=== PATIENT | male | born 1960 | race Hispanic/Latino ===

== ENCOUNTER 2016-09-29 15:40 | Emergency (ER) | payer OTHER, MEDICARE ==
[~2016-09-29] VITALS: Ht 172.7 cm; Wt 76.2 kg
[~2016-09-29 15:40] MED LIST: AMITRIPTYLINE H50 M2 PO; ASPIRIN CHILDRE81 MG PO; ASPIRIN EC325 MG PO; ASPIRIN EC81 M1 PO; COMPLERA TABLE1 EACH PO; CYCLOBENZAPRINE5 M2 PO; FAMOTIDINE40 M1 PO; FISH OIL CONC1000 MG PO; FISH OIL CONCEN1 SGL PO; FISH OIL1000 MG PO; FLEXERIL10 MG PO; FUROSEMIDE20 M1 PO; HYDROCHLOROTHIA25 M1 PO; LISINOPRIL20 MG PO; LISINOPRIL40 M1 PO; LOPRESSOR50 M1 PO; LOPRESSOR50 MG PO; LORAZEPAM2 M1 PO; LORAZEPAM2 MG PO; MASON NATURAL1200 MG PO; METOPROLOL TART50 MG PO; MOTRIN 600 MG600 MG PO; NIACIN500 M6 PO; NITRO-DUR0.4 MG/HR TOP; NITRO-DUR1 EAC1 TOP; NORVIR100 MG PO; OXYCODONE HCL5 M1 PO; PROAIR HFA0.09 MG/Ac INH; REYATAZ 300MG300 MG PO; TORADOL10 MG PO; TRUVADA 200 MG-1 TAB PO; Transderm Nitro 10MG (0.4 MG/Hr) Patch TOP; VITAMIN D250000 UNIT PO
[2016-09-29 15:55] LABS: HEMATOCRIT 49.8 % (42-52); MEAN CORPUSCULAR HGB 29.3 PG (27.0-31.0); MEAN CORPUSCULAR HGB CONC 32.6 G/DL (33.0-37.0); MEAN CORPUSCULAR VOLUME 89.9 FL (80.0-94.0); MEAN PLATELET VOLUME 8.1 FL (7.4-10.4); PLATELET COUNT 154 /CUMM (130-400); RBC DISTRIBUTION WIDTH 13.2 % (11.5-14.5); RED BLOOD CELL CT 5.54 /CUMM (4.70-6.10); WHITE BLOOD CELL COUNT 7.4 /CUMM (4.8-10.8)
--- NOTE | 2016-09-29 16:39 | ED CARDIAC/CP/PALPITATIONS ---
History of Present Illness General Chief Complaint: Cardiopulmonary Resuscitation Stated Complaint: BIBA FOR CARDIAC ARREST Source: patient Exam Limitations: no limitations Vital Signs & Intake/Output Vital Signs & Intake/Output Vital Signs Date Time Temp Pulse Resp B/P B/P Pulse O2 O2 Flow FiO2 Mean Ox Delivery Rate 09/29 1927 122 16 131/89 97 Ventilator 100% 09/29 1902 103 16 140/103 99 Ventilator 100% 09/29 1854 100 09/29 1852 140 165/120 09/29 1755 140 16 165/120 99 Ventilator 100% 09/29 1714 99 Ventilator 100% 09/29 1602 139 16 162/90 98 Ventilator 100% 09/29 1545 100 09/29 1540 150 20 70/47 98 Ventilator 100% Allergies Coded Allergies: NO KNOWN ALLERGIES (09/23/15) Reconcile Medications Amitriptyline HCl 50 MG TABLET 1 TAB PO DAILY DEPRESSION (Reported) Aspirin (Ecotrin*) 81 MG TABLET.DR 1 TAB PO DAILY HEART/BLOOD (Reported) Emtricitab/Rilpivirine/Tenofov (Complera Tablet) 1 EACH TABLET 1 TAB PO DAILY ANTIVIRAL (Reported) Famotidine 40 MG TABLET 1 TAB PO BID GI (Reported) Furosemide 20 MG TABLET 0.5 TAB PO EOD DIURETIC (Reported) Hydrochlorothiazide 25 MG TABLET 1 TAB PO DAILY BP (Reported) Lisinopril 40 MG TABLET 1 TAB PO BID BP (Reported) Lorazepam 2 MG TABLET 1 TAB PO TID ANXIETY (Reported) Metoprolol Tartrate (Lopressor) 50 MG TABLET 1.5 TAB PO BID HEART/BP ( Reported) Niacinamide (Niacin) 500 MG TABLET 1 TAB PO DAILY SUPPLEMENT (Reported) Nitroglycerin (Nitro-Dur) 1 EACH PATCH.TD24 1 PATCH TOP DAILY ANGINA ( Reported) Triage Nurses Notes Reviewed? yes HPI: Patient presents status post asystolic and subsequent PEA arrest. According to EMS the patient had been out with the family for the day and then collapsed. EMS arrived after approximately a 10 minute down time and performed CPR including intubation. After 4 rounds of epinephrine he had a return of spontaneous circulation. Patient is unable to provide history. Past History Travel History Traveled to [place] past 21 day No Medical History Any Pertinent Medical History? 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 SISTER Relation not specified for: Early CAD Hx Contributory? No Review of Systems Review of Systems Constitutional: Reports: see HPI. Comments Patient unable to provide review of systems Physical Exam Physical Exam Cardiovascular: SEE below Comments: Gen.: Well-nourished, well-developed, unresponsive, status post endotracheal intubation Head: Normocephalic, atraumatic. Eyes: Pupils fixed and dilated with clouded corneas bilaterally Ears: Normal inspection bilaterally Nose: Normal inspection Throat/mouth : Endotracheal tube in place Neck: No apparent trauma Heart: Rapid but otherwise Regular rate and rhythm, no murmurs rubs or gallops Lungs: Clear to auscultation bilaterally with normal air entry with manual ventilations Chest: No apparent trauma with good chest rise with manual ventilations Abdomen: Nondistended with no "breathsounds" over the epigastric region Extremities: Spontaneous movements, palpable radial and femoral pulses Neurologic: Able to assess Skin: warm and dry Psychiatric: unable to assess Core Measures ACS in differential dx? Yes Severe Sepsis Present: No Septic Shock Present: No Progress Differential Diagnosis: myocardial infarction, dysrhythmia, pulmonary embolism Plan of Care: Orders Procedure Date/time Status ARTERIAL BLOOD GAS (GEN) 09/29 1938 Active Admit to inpatient 09/29 1938 Active EKG 09/29 1810 Active EKG 09/29 1742 Active VENTILATOR PARAMETERS 09/29 1601 Complete Add-on Test (ER Only) 09/29 1555 Active COMPREHENSIVE METABOLIC PANEL 09/29 1548 Complete CBC WITHOUT DIFFERENTIAL 09/29 1548 Complete EKG 09/29 1544 Active TROPONIN LEVEL 09/29 1520 Complete Current Medications Sig/Aidan Start time Last Medication Dose Stop Time Status Admin Amiodarone HCl/ 360 MG Q12H 09/29 1944 UNVr Dextrose (Nexterone) N/A 1 UNIT (No Carrier) Lorazepam 1 MG ONCE ONE 09/29 1944 UNVr (Ativan) 09/29 1945 Metoprolol Tartrate 5 MG ONCE ONE 09/29 1944 UNVr (Lopressor) 09/29 1945 Metoprolol Tartrate 5 MG ONCE ONE 09/29 1944 UNVr (Lopressor) 09/29 1945 Epinephrine 2 MG ONCE ONE 09/29 1844 UNir 09/29 (EPINEPHRINE DRIP) 09/29 1845 1613 Sodium Chloride 250 ML (Normal Saline 0.9%) Laboratory Tests 09/29/16 1520: Anion Gap 20 H, Estimated GFR > 60, BUN/Creatinine Ratio 12.0, Glucose 615 *H, Calcium 8.3 L, Total Bilirubin 0.7, AST 504 H, ALT 396 H, Alkaline Phosphatase 145 H, Troponin I < 0.01, Total Protein 6.2 L, Albumin 3.4 L, Globulin 2.8, Albumin/Globulin Ratio 1.2, CBC w Diff MAN DIFF ORDERED, RBC 5.54, MCV 89.9, MCH 29.3, RDW 13.2, MPV 8.1, PUBS MCHC 32.6 L Diagnostic Imaging: Discussed w/RAD: Radiology Read. CXR Impression: PATIENT: KRISTI BRIGHT PRESENT AGE: 55 PATIENT ACCOUNT NO: [id number] : 60 LOCATION: ER ORDERING PHYSICIAN: JOAN RODRIGUEZ MD SERVICE DATE: 09/29/16 EXAM TYPE: RAD - XRY-PORTABLE CHEST XRAY EXAMINATION: XR PORTABLE CHEST CLINICAL INFORMATION: Endotracheal tube placement COMPARISON: 09/23/2015 TECHNIQUE: Portable frontal view of the chest was obtained. FINDINGS: The endotracheal tube terminates 4 cm above the merlin. Cardiac leads overlie the chest. Low lung volumes with elevated left hemidiaphragm. Blunted appearance of the left costophrenic angle appears chronic. No pneumothorax. No dense consolidation. The cardiomediastinal silhouette is unchanged. No acute osseous abnormality. IMPRESSION: Endotracheal tube terminating 4 cm above the merlin. 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 < Electronically signed in Other Vendor System> SIGNED BY: ROBERTA LOPEZ MD 09/29/161715 Initial ED EKG: WIDE COMPLEX TACHY WITH RATE OF 125, ST CHANGES ?ISCHEMIC Repeat EKG: changed (ST ELEVATIONS DIFFUSELY) Comments: 09/29/2016 4:38:10 PM despite the return of spontaneous circulation upon arrival to the emergency department, the patient's pupils have been fixed and dilated since arrival. There has been no corneal reflexes spontaneous respirations were spontaneous movements. His initial rhythm was an irregular tachycardia that settled into a sinus rhythm. However he then bradyed down and lost peripheral pulses. He was dosed with an amp of epinephrine with return of spontaneous circulation. An epinephrine drip is now infusing and a right groin central line has been placed. Patient continues to have easily palpable peripheral pulses and a slightly low blood pressure. 09/29/2016 5:56:05 PM patient's pupils are now midpoint and his corneas have cleared. There is even a suggestion that he might be fighting the ventilator from time to time. However, he has been weaned off of the epinephrine and he is currently tachycardic with a heart rate of just under [address] segment elevations diffusely. He is also hypertensive. I've just discussed this case with Dr. Mckenzie who will evaluate him momentarily. We are considering a trip to the cardiac catheterization lab. 09/29/2016 6:32:01 PM patient's case discussed with Dr. Mckenzie who has evaluated the patient here in the emergency department. The appeared to be suffering transient episodes of ventricular tachycardia and was medicated with amiodarone and magnesium. The dysrhythmia resolved. Patient's heart rate and blood pressure improved. Interestingly the patient seemed to be having temporalis and masseter muscle spasms along with bilateral lower eyelid twitching. I do not feel the patient is having seizures but Ativan was administered to keep the patient compliant on the ventilator. He is taking occasional breaths on his own. Dr. Mckenzie's asked for a repeat EKG given the change in the patient's monitor after medications. He does not feel the patient requires urgent catheterization. 09/29/2016 7:19:[address] Mckenzie is performing a bedside echocardiogram given that the patient's repeat EKG shows diffuse ST segment elevations. 09/29/2016 7:36:22 PM I have discussed this patient's case with Dr. Dejesus. Patient to be admitted ICU. Departure Departure Disposition: STILL A PATIENT Condition: Critical Clinical Impression Primary Impression: Cardiac arrest Secondary Impressions: Hyperglycemia, Liver disease Referrals: LILA NIELSEN,FREDRICK Arrednodo (PCP/Family) Departure Forms: General Discharge Information Admission Note Spoke With: PAT RIVAS MD Documentation of Exam: Documentation of any treatments & extenuating circumstances including Concerns Regarding Discharge (functional status, medication knowledge or non-compliance, living conditions, etc.) that warrant an admission rather than observation: Patient has been successfully resuscitated from cardiac arrest and now requires intensive medical care. This patient has been intubated and requires mechanical ventilation along with continuous cardiac monitoring and serial troponins EKGs and clinical evaluations. Cardiology consultation should be obtained. Echocardiogram stress testing and cardiac catheterization should also be considered. This patient's prognosis is grave at this point. Critical Care Note Critical Care Note Critical Care Time: 75-104 min
--- NOTE | 2016-09-29 17:16 | RADIOLOGY REPORT ---
EXAMINATION: XR PORTABLE CHEST CLINICAL INFORMATION: Endotracheal tube placement COMPARISON: 09/23/2015 TECHNIQUE: Portable frontal view of the chest was obtained. FINDINGS: The endotracheal tube terminates 4 cm above the merlin. Cardiac leads overlie the chest. Low lung volumes with elevated left hemidiaphragm. Blunted appearance of the left costophrenic angle appears chronic. No pneumothorax. No dense consolidation. The cardiomediastinal silhouette is unchanged. No acute osseous abnormality. IMPRESSION: Endotracheal tube terminating 4 cm above the merlin.
--- NOTE | 2016-09-29 19:09 | Cons- Cardiology ---
General Information and HPI Consulting Request Date of Consult: 09/29/16 Requested By: ER History of Present Illness: Jc is a 55 year old male with history of hypertension and HIV. He has been complaining of chest discomfort lately and, according to his family, complained of pain earlier today. His found him sitting upright on his couch having what family calls "convulsions" although their exact description is not known at this time. The patient was pulseless and CPR was initiated by family. EMS arrived in about 10 minutes and noted pulseless electical activity. He was tachycardic and hypotensive. His initial ECG showed a sinus tachycardia with ST depressions in leads V3-V6 with 1/[address] elevation in leads 2 and F. A subsequent ECG showed diffuse ST elevations and he also demonstrate intermittent runs of NSVT that calmed down with Amiodarone. This patient was recently risk stratified with a stress test that showed an exercise tolerance of 13 minutes without ECG changes, symptoms or any abnormality of nuclear imaging. At baseline he has intermittent symptoms of shortness of breath with bronchospasm but does not have lightheadedness or palpitations. He does complain of headaches. A cardiac catherization in 2011 showed small vessel coronary artery disease with normal EF of 55%. There was no flow limiting epicardial coronary artery disease. Allergies/Medications Allergies: Coded Allergies: NO KNOWN ALLERGIES (09/23/15) Home Med List: Amitriptyline HCl 50 MG TABLET 1 TAB PO DAILY DEPRESSION (Reported) Aspirin (Ecotrin*) 81 MG TABLET.DR 1 TAB PO DAILY HEART/BLOOD (Reported) Emtricitab/Rilpivirine/Tenofov (Complera Tablet) 1 EACH TABLET 1 TAB PO DAILY ANTIVIRAL (Reported) Famotidine 40 MG TABLET 1 TAB PO BID GI (Reported) Furosemide 20 MG TABLET 0.5 TAB PO EOD DIURETIC (Reported) Hydrochlorothiazide 25 MG TABLET 1 TAB PO DAILY BP (Reported) Lisinopril 40 MG TABLET 1 TAB PO BID BP (Reported) Lorazepam 2 MG TABLET 1 TAB PO TID ANXIETY (Reported) Metoprolol Tartrate (Lopressor) 50 MG TABLET 1.5 TAB PO BID HEART/BP ( Reported) Niacinamide (Niacin) 500 MG TABLET 1 TAB PO DAILY SUPPLEMENT (Reported) Nitroglycerin (Nitro-Dur) 1 EACH PATCH.TD24 1 PATCH TOP DAILY ANGINA ( Reported) Past History Travel History Traveled to [place] past 21 day No Medical History Neurological: HEADACHES EENT: NONE Cardiovascular: angina, hypertension, hyperlipidemia Respiratory: NONE Gastrointestinal: NONE Hepatic: NONE Renal: NONE Musculoskeletal: NONE Psychiatric: NONE Endocrine: glucose intolerance Blood Disorders: NONE Cancer(s): 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 SISTER Relation not specified for: Early CAD Family History Reviewed? Mother: of an CA at age 44 Sister: CA at age 48 Psychosocial History Services at Home: None Smoking Status: Former Smoker ETOH Use: occasional use Exam & Diagnostic Data Vital Signs and I&O Vital Signs Date Time Temp Pulse Resp B/P B/P Pulse O2 O2 Flow FiO2 Mean Ox Delivery Rate 09/29 1902 103 16 140/103 99 Ventilator 100% 09/29 1854 100 09/29 1852 140 165/120 09/29 1755 140 16 165/120 99 Ventilator 100% 09/29 1714 99 Ventilator 100% 09/29 1602 139 16 162/90 98 Ventilator 100% 09/29 1545 100 09/29 1540 150 20 70/47 98 Ventilator 100% Intake & Output 09/29 1600 09/29 0800 09/29 0000 09/28 1600 09/28 0800 09/28 0000 Intake Total Output Total Balance Patient 168 lb Weight Weight Estimated Measurement Method Physical Exam: General: WD/ WN male. Intubated. Unresponsive to painful stimuli. HEENT: NC/ AT, pupils are unreactive Neck: no discernable JVD Heart: RRR w/o murmur Lungs: clear bilaterally Abdomen: soft, distended Extremities: no edema Neuro: no spontaneous movement Diagnostic Data EKG Results sinus rhythm with IVCD and ST elevations in all leads except aVR Assessment/Plan Assessment/Plan * In consideration of this patient's reported chest discomfort, NSVT and risk factors it is likely that his current, very diffuse ST elevations are related to the injury current of an acute CA rather than pericarditis. He is not a candidate for invasive treatment at this time due to his unresponsiveness to painful stimuli and fixed pupils. We will obtain an echocardiogram. * Begin IV lopressor 5mg Q 6 hours or as needed to keep his heart rate at less than 80BPM or as tolerated by blood pressure. Begin NTG paste 1 inch Q 6 hours. Begin IV heparin, aspirin and Plavix. * Obtain a chest X-ray and follow cardiac enzymes until they peak. * Continue Amiodarone drip and monitor for recurrent VT. * Begin sliding scale insulin and check TFT's and magnesium/ * Twitching is noted in the patient's scalp. Would consider seizure. Obtain a head CT. Obtain a neurology consult. Consult Acknowledgment - Thank you for your consult request.
[2016-09-29 22:27] VITALS: BP 42/00
== END 2016-09-29 23:19 | disposition expired ==
LOC: ERH 15:40 → ENRESERV 21:24 → CANRESERV 21:24 → ERH 23:19 → CANBEDREQ 09-30 17:11
PROVIDERS: Emergency Medicine
DX: I46.9 Cardiac arrest, cause unspecified (principal); K76.9 Liver disease, unspecified; R73.9 Hyperglycemia, unspecified; I10 Essential (primary) hypertension; E78.5 Hyperlipidemia, unspecified; I20.9 Angina pectoris, unspecified
CPT/HCPCS: 1344; 1387; 93005; 93010; 94799; 96361; 96374; 96375; 96376; 99291; J0171; J0282; J7040